=== PATIENT | female | born 1960 | race African-American/Black ===

== ENCOUNTER 2017-01-19 07:33 | Inpatient (IN) | payer MEDICARE ==
[~2017-01-19] VITALS: Ht 157.5 cm; Wt 104.8 kg
[2017-01-19] VITALS (8 sets, daily range): BP systolic 130–180; BP diastolic 51–83
[~2017-01-19 07:33] MED LIST: INSULIN
[2017-01-19] MEDS ORDERED: CALCIUM GLUCONATE 100MG/ML 10ML VIAL IV ONE (08:00)
[2017-01-19 08:05] LABS: BASOPHILS % 0.4 % (0.0-2.0); EOSINOPHILS % 1.5 % (0.0-5.0); HEMATOCRIT. 29.6 % (36.0-48.0); HEMOGLOBIN. 9.6 g/dL (12.0-16.0); LYMPHOCYTES % 17.6 % (20.0-50.0); MEAN CORPUSCULAR HEMOGLOBIN 29.6 pg (28.0-32.0); MEAN CORPUSCULAR VOLUME 91.1 fL (81.0-99.0); MONOCYTES % 4.6 % (2.0-8.0); NEUTROPHILS % 75.9 % (40.0-76.0); PLATELET 131 x1000/uL (130-400); RED BLOOD CELL COUNT 3.25 mill/uL (4.2-5.4); RED CELL DISTRIBUTION WIDTH 15.5 % (11.6-14.6)
[2017-01-19 08:13] LABS: PROTHROMBIN TIME 10.3 sec
[2017-01-19] MEDS ORDERED: CALCIUM GLUCONATE 1000MG in DEXTROSE 5% WATER 50ML IV ONE (08:15)
[2017-01-19 08:16] LABS: CHLORIDE 96 mEq/L (98-107)
[2017-01-19 08:22] LABS: CARBON DIOXIDE 27 mEq/L (21-32)
[2017-01-19] MEDS ORDERED: FUROSEMIDE 100MG/10ML VIAL IV STA (08:27)
[2017-01-19] MEDS ORDERED: INSULIN REGULAR (HUMULIN R) 300UNITS/3ML IV ONE (08:30)
[2017-01-19] MEDS ORDERED: DEXTROSE 50% WATER 50ML SYRINGE IV ONE (08:30)
[2017-01-19] MEDS ORDERED: SODIUM BICARBONATE 8.4% 1 MEQ/ML 50ML SYR IV ONE (08:30)
[2017-01-19] MEDS ORDERED: ALBUTEROL (0.083%) 2.5MG/3ML NEB HHN ONE (08:30)
[2017-01-19] MEDS ORDERED: ALBUTEROL (0.083%) 2.5MG/3ML NEB ONE (08:57)
[2017-01-19] MEDS ORDERED: SODIUM POLYSTYRENE SULFONATE 15 G/60 ML BOT PO NR ×2 (10:00→14:00)
[2017-01-19] MEDS ORDERED: DIPHENHYDRAMINE 50MG/ML VIAL IV PRN (11:00)
[2017-01-19] MEDS ORDERED: MAGNESIUM/ALUMINUM HYDROXIDE/SIMETHICONE 30ML UDC PO PRN (11:00)
[2017-01-19] MEDS ORDERED: ONDANSETRON HCL 4MG/2ML VIAL IV PRN (11:00)
[2017-01-19] MEDS ORDERED: ZOLPIDEM TARTRATE 5MG TABLET PO PRN (11:00)
[2017-01-19] MEDS ORDERED: DOCUSATE SODIUM 100MG CAPSULE PO PRN (11:00)
[2017-01-19] MEDS ORDERED: IPRATROPIUM/ALBUTEROL 0.5-3(2.5)MG/3ML NEB INH PRN (11:00)
[2017-01-19] MEDS ORDERED: TRAMADOL 50MG TABLET PO PRN (11:00)
[2017-01-19] MEDS ORDERED: ACETAMINOPHEN 325MG TABLET PO PRN (11:00)
[2017-01-19] MEDS ORDERED: GUAIFENESIN 200MG/10ML SUGAR FREE UDC PO PRN (11:00)
[2017-01-19] MEDS ORDERED: LORAZEPAM 2MG/ML CPJ IV PRN (11:00)
[2017-01-19 12:00] LABS: T4 FREE 0.85 ng/dL (0.76-1.46)
[2017-01-19] MEDS ORDERED: ENOXAPARIN 30MG/0.3ML SYR SUBCUT SCH (12:00)
[2017-01-19 12:20] LABS: VITAMIN B12 SERUM 1058 pg/mL (211-911)
[2017-01-19 12:29] LABS: FOLIC ACID (FOLATE) SERUM > 20.00 ng/mL (>5.38)
[2017-01-19] MEDS ORDERED: LEVOFLOXACIN 500MG PREMIX 100 ML IV NR (13:00)
[2017-01-19] MEDS: CEFTRIAXONE 1 G PREMIX 50 ML IV SCH (15:04)
[2017-01-19] MEDS: CALCIUM CARBONATE 1250MG TABLET (500MG ELEMENTAL CALCIUM) PO SCH ×2 (15:04→17:48)
[2017-01-19] MEDS: SEVELAMER CARBONATE 800 MG TABLET PO SCH ×2 (15:04→17:48)
[2017-01-19] MEDS: CLONIDINE 0.1MG TABLET PO PRN (15:09)
[2017-01-19] MEDS ORDERED: CALCIUM GLUCONATE 1,000 MG in DEXT 5% WATER 90 ML IV NR (15:30)
[2017-01-19 15:51] LABS: CARBON DIOXIDE 28 mEq/L (21-32); CHLORIDE 98 mEq/L (98-107)
[2017-01-19 15:57] LABS: CREATINE KINASE 196 IU/L (26-192); TROPONIN I < 0.02 ng/mL (0.00-0.04)
[2017-01-19] MEDS: AMLODIPINE 2.5MG TABLET PO SCH ×2 (16:01→17:50)
[2017-01-19] MEDS: INS NPH/REG HM 70-30 100 UNITS/ML 10ML VIAL (HUMULIN 70-30) SUBCUT SCH (17:46)
[2017-01-19] MEDS: ENOXAPARIN 40MG/0.4ML SYR SUBCUT SCH (17:48)
[2017-01-19] MEDS ORDERED: INS NPH/REG HM 70-30 100 UNITS/ML 10ML VIAL (HUMULIN 70-30) SUBCUT SCH (18:15)
[2017-01-19] MEDS ORDERED: EPOETIN ALFA 10000UNITS/ML VIAL SUBCUT SCH (21:00)
[2017-01-19] MEDS: ATORVASTATIN CALCIUM 40MG TABLET PO SCH (21:42)
[2017-01-19] MEDS: AMLODIPINE 10MG TABLET PO SCH (21:42)
[2017-01-20] VITALS (13 sets, daily range): BP systolic 123–183; BP diastolic 60–93
[2017-01-20 06:19] LABS: BASOPHILS % 1.5 % (0.0-2.0); EOSINOPHILS % 3.8 % (0.0-5.0); HEMATOCRIT. 29.8 % (36.0-48.0); HEMOGLOBIN. 9.8 g/dL (12.0-16.0); LYMPHOCYTES % 28.6 % (20.0-50.0); MEAN CORPUSCULAR HEMOGLOBIN 29.7 pg (28.0-32.0); MEAN CORPUSCULAR VOLUME 90.3 fL (81.0-99.0); MEAN PLATELET VOLUME 11.2 fl (7.4-10.4); MONOCYTES % 8.3 % (2.0-8.0); NEUTROPHILS % 57.8 % (40.0-76.0); PLATELET 126 x1000/uL (130-400); RED CELL DISTRIBUTION WIDTH 15.4 % (11.6-14.6)
[2017-01-20 06:57] LABS: CARBON DIOXIDE 31 mEq/L (21-32); CHLORIDE 96 mEq/L (98-107); CREATINE KINASE 193 IU/L (26-192); PHOSPHORUS 3.7 mg/dL (2.5-4.9); TROPONIN I < 0.02 ng/mL (0.00-0.04)
[2017-01-20] MEDS: PANTOPRAZOLE SODIUM 40 MG/VIAL IV SCH (07:51)
[2017-01-20] MEDS: ASPIRIN 325MG EC TABLET PO SCH (07:51)
[2017-01-20] MEDS: FOLIC ACID/VITAMIN B COMP W-C TABLET PO SCH (08:03)
[2017-01-20] MEDS: CITALOPRAM HYDROBROMIDE 40MG TABLET PO SCH (08:03)
[2017-01-20] MEDS: CALCIUM CARBONATE 1250MG TABLET (500MG ELEMENTAL CALCIUM) PO SCH ×3 (08:03→18:17)
[2017-01-20] MEDS: SEVELAMER CARBONATE 800 MG TABLET PO SCH (08:03)
[2017-01-20] MEDS: INS NPH/REG HM 70-30 100 UNITS/ML 10ML VIAL (HUMULIN 70-30) SUBCUT SCH ×2 (08:19→18:15)
[2017-01-20] MEDS: CEFTRIAXONE 1 G PREMIX 50 ML IV SCH (08:51)
[2017-01-20] MEDS: ENOXAPARIN 40MG/0.4ML SYR SUBCUT SCH (18:16)
[2017-01-20] MEDS: ATORVASTATIN CALCIUM 40MG TABLET PO SCH (20:14)
[2017-01-20] MEDS: AMLODIPINE 10MG TABLET PO SCH (20:14)
[2017-01-20] MEDS: CLONIDINE 0.1MG TABLET PO PRN (21:11)
[2017-01-20] MEDS ORDERED: CITA40TA22 PO (22:58)
[2017-01-20] MEDS ORDERED: CALC1TAB17 PO (22:58)
[2017-01-20] MEDS ORDERED: ATOR80TA76 PO (22:58)
[2017-01-20] MEDS ORDERED: CINA30 PO (22:58)
[2017-01-20] MEDS ORDERED: SEVE800T8 PO (22:58)
[2017-01-20] MEDS ORDERED: HUM10VIA8 SQ ×2 (22:58)
[2017-01-20] MEDS ORDERED: LABE100T PO (22:58)
[2017-01-20] MEDS ORDERED: AMLO10TA4 PO (22:58)
[2017-01-21] VITALS (12 sets, daily range): BP systolic 147–174; BP diastolic 65–83
[2017-01-21 06:50] LABS: BASOPHILS % 1.8 % (0.0-2.0); HEMATOCRIT. 28.4 % (36.0-48.0); HEMOGLOBIN. 9.5 g/dL (12.0-16.0); LYMPHOCYTES % 28.3 % (20.0-50.0); MEAN CORPUSCULAR HEMOGLOBIN 29.8 pg (28.0-32.0); MEAN PLATELET VOLUME 11.1 fl (7.4-10.4); MONOCYTES % 10.8 % (2.0-8.0); NEUTROPHILS % 54.1 % (40.0-76.0); PLATELET 121 x1000/uL (130-400); RED BLOOD CELL COUNT 3.19 mill/uL (4.2-5.4); RED CELL DISTRIBUTION WIDTH 15.2 % (11.6-14.6)
[2017-01-21 07:55] LABS: PHOSPHORUS 4.4 mg/dL (2.5-4.9)
[2017-01-21] MEDS: ASPIRIN 325MG EC TABLET PO SCH (08:11)
[2017-01-21] MEDS: CALCIUM CARBONATE 1250MG TABLET (500MG ELEMENTAL CALCIUM) PO SCH ×3 (08:11→17:40)
[2017-01-21] MEDS: PANTOPRAZOLE SODIUM 40 MG/VIAL IV SCH (08:11)
[2017-01-21] MEDS: CITALOPRAM HYDROBROMIDE 40MG TABLET PO SCH (08:12)
[2017-01-21] MEDS: FOLIC ACID/VITAMIN B COMP W-C TABLET PO SCH (08:23)
[2017-01-21] MEDS: INS NPH/REG HM 70-30 100 UNITS/ML 10ML VIAL (HUMULIN 70-30) SUBCUT SCH ×2 (08:28→17:40)
[2017-01-21] MEDS ORDERED: CEFTRIAXONE 1 G PREMIX 50 ML IV SCH (08:30)
[2017-01-21] MEDS ORDERED: LEVOFLOXACIN 250MG PREMIX 50 ML IV SCH (13:00)
[2017-01-21] MEDS: CLONIDINE 0.1MG TABLET PO PRN (16:23)
[2017-01-21] MEDS: ENOXAPARIN 40MG/0.4ML SYR SUBCUT SCH (17:39)
[2017-01-21] MEDS: ATORVASTATIN CALCIUM 40MG TABLET PO SCH (21:05)
[2017-01-21] MEDS: AMLODIPINE 10MG TABLET PO SCH (21:05)
[2017-01-22] VITALS (8 sets, daily range): BP systolic 139–180; BP diastolic 65–82
[2017-01-22] MEDS: CLONIDINE 0.1MG TABLET PO PRN ×2 (02:13→08:24)
[2017-01-22] MEDS: ASPIRIN 325MG EC TABLET PO SCH (08:24)
[2017-01-22] MEDS: CITALOPRAM HYDROBROMIDE 40MG TABLET PO SCH (08:24)
[2017-01-22] MEDS: CALCIUM CARBONATE 1250MG TABLET (500MG ELEMENTAL CALCIUM) PO SCH ×2 (08:24→13:13)
[2017-01-22] MEDS: FOLIC ACID/VITAMIN B COMP W-C TABLET PO SCH (08:24)
[2017-01-22] MEDS: PANTOPRAZOLE SODIUM 40 MG/VIAL IV SCH (08:24)
[2017-01-22] MEDS: INS NPH/REG HM 70-30 100 UNITS/ML 10ML VIAL (HUMULIN 70-30) SUBCUT SCH (08:26)
[2017-01-22] MEDS ORDERED: HYDRALAZINE HCL 50MG TABLET PO SCH (21:00)
== END 2017-01-22 13:43 | disposition home or self-care (01) | DRG 871 ==
LOC: ER 07:51 → 5EST 09:04 → SUPCPDRO 10:53
PROVIDERS: ADMIT Internal Medicine; ATTEND Internal Medicine
PROC: 3E1M39Z Irrigation of Peritoneal Cavity using Dialysate, Percutaneous Approach (ICD-10-PCS; principal; 2017-01-19)
DX: A41.9 Sepsis, unspecified organism (principal); N18.6 End stage renal disease; E44.1 Mild protein-calorie malnutrition; E87.1 Hypo-osmolality and hyponatremia; I13.11 Hypertensive heart and chronic kidney disease without heart failure, with stage 5 chronic kidney disease, or end stage renal disease; Z68.41 Body mass index [BMI] 40.0-44.9, adult; N25.81 Secondary hyperparathyroidism of renal origin; E66.01 Morbid (severe) obesity due to excess calories; F32.9 Major depressive disorder, single episode, unspecified; F41.9 Anxiety disorder, unspecified; K59.00 Constipation, unspecified; E87.5 Hyperkalemia; E83.39 Other disorders of phosphorus metabolism; R00.1 Bradycardia, unspecified; E11.22 Type 2 diabetes mellitus with diabetic chronic kidney disease; D63.8 Anemia in other chronic diseases classified elsewhere; E78.00 Pure hypercholesterolemia, unspecified; E78.5 Hyperlipidemia, unspecified; E83.51 Hypocalcemia; Z88.0 Allergy status to penicillin; Z79.899 Other long term (current) drug therapy; Z79.4 Long term (current) use of insulin; Z80.1 Family history of malignant neoplasm of trachea, bronchus and lung; Z99.2 Dependence on renal dialysis; Z82.3 Family history of stroke; Z82.49 Family history of ischemic heart disease and other diseases of the circulatory system; Z83.3 Family history of diabetes mellitus; Z98.51 Tubal ligation status
CPT/HCPCS: 36415; 71010; 80048; 80053; 80061; 82550; 82553; 82607; 82746; 82962; 83036; 83540; 83550; 83605; 83690; 83735; 83880; 84100; 84439; 84443; 84484; 85025; 85610; 87040; 87070; 87205; 89050; 93005; 93306; 93970; 94640; 96365; 96375; 97161; 97165; 99291; C9113; J0610; J0696; J0885; J1650; J1815; J1956; J3490; J7060; J7611

== ENCOUNTER 2017-05-18 19:56 | Emergency (ER) | payer MEDICARE ==
[~2017-05-18] VITALS: Ht 157.5 cm; Wt 99.0 kg
[~2017-05-18 19:56] MED LIST changes: +AMLO10TA4 PO; +ATOR-2 PO; +CALC1TAB17 PO; +CINA30 PO; +CITA40TA22 PO; +HUM10VIA8 SQ; +SEVE800T8 PO
[2017-05-18] MEDS ORDERED: HYDR-4134 PO (20:25)
[2017-05-18] MEDS ORDERED: HYDROCODONE/ACETAMINOPHEN 5/325MG TABLET PO ONE (22:30)
[2017-05-19 00:39] VITALS: BP 160/73
== END 2017-05-19 00:42 | disposition home or self-care (01) ==
LOC: ER 19:56
DX: M70.62 Trochanteric bursitis, left hip (principal); E11.9 Type 2 diabetes mellitus without complications; E78.00 Pure hypercholesterolemia, unspecified; I12.0 Hypertensive chronic kidney disease with stage 5 chronic kidney disease or end stage renal disease; E11.22 Type 2 diabetes mellitus with diabetic chronic kidney disease; N18.6 End stage renal disease; Z99.2 Dependence on renal dialysis; Z79.4 Long term (current) use of insulin; Z88.0 Allergy status to penicillin; Y93.89 Activity, other specified
CPT/HCPCS: 73502; 99284

== ENCOUNTER 2021-07-23 19:07 | Emergency (ER) | payer MEDICARE, OTHER ==
[~2021-07-23] VITALS: Ht 160 cm; Wt 88.8 kg
[~2021-07-23 19:07] MED LIST changes: +FOLI1TAB63 MT; +HYDR-4134 PO; -INSULIN; +LABE100T5 MT
[2021-07-23 21:00] VITALS: BP 153/87
[2021-07-23] MEDS ORDERED: ONDANSETRON 4MG ODT PO ONE (21:45)
== END 2021-07-23 22:00 | disposition home or self-care (01) ==
LOC: ER 19:07
DX: J06.9 Acute upper respiratory infection, unspecified (principal); I10 Essential (primary) hypertension; E78.00 Pure hypercholesterolemia, unspecified; Z88.0 Allergy status to penicillin; Z79.899 Other long term (current) drug therapy; Z98.51 Tubal ligation status
CPT/HCPCS: 93005; 99283; Q0162

== ENCOUNTER 2024-10-06 17:27 | Emergency (ER) | payer MEDICARE, OTHER ==
[~2024-10-06] VITALS: Ht 157.5 cm; Wt 79.0 kg
[~2024-10-06 17:27] MED LIST changes: +APIX2.5T PO; +ASPI-1497 PO; -HYDR-4134 PO; -LABE100T5 MT; +LABE100T9 MT; +SULF1TAB48 PO
[2024-10-06 17:37] VITALS: TEMP 37.2; O2SAT 96
[2024-10-06 18:36] VITALS: TEMP 99
[2024-10-06] MEDS: ACETAMINOPHEN 325MG TABLET PO NR (18:36)
[2024-10-06 22:04] VITALS: BP 125/58; PULSE 78; RESP 14; O2SAT 97
== END 2024-10-06 22:05 | disposition home or self-care (01) ==
LOC: ER 17:27
DX: S52.501A Unspecified fracture of the lower end of right radius, initial encounter for closed fracture (principal); E11.9 Type 2 diabetes mellitus without complications; I10 Essential (primary) hypertension; E78.5 Hyperlipidemia, unspecified; I48.91 Unspecified atrial fibrillation; Z79.899 Other long term (current) drug therapy; Z79.82 Long term (current) use of aspirin; Z90.710 Acquired absence of both cervix and uterus; Z88.0 Allergy status to penicillin; W19.XXXA Unspecified fall, initial encounter; Y93.89 Activity, other specified; Y92.89 Other specified places as the place of occurrence of the external cause; Y99.8 Other external cause status
CPT/HCPCS: 29125; 73110; 99283

== ENCOUNTER 2024-12-29 12:36 | Inpatient (IN) | payer MEDICARE ==
[2024-12-29] VITALS (29 sets, daily range): BP systolic 86–173; BP diastolic 39–69; PULSE 73–112; RESP 5–27; TEMP 37.3; O2SAT 95–100
[~2024-12-29] VITALS: Ht 152.4 cm; Wt 92.1 kg
[~2024-12-29 12:36] MED LIST changes: -AMLO10TA4 PO; +AMLO5TAB88 PO; -APIX2.5T PO; +APIX5TAB PO; -CALC1TAB17 PO; +CEFD300C3 MT; -CINA30 PO; +FLUT9.9S BOTHNSTRLS; -HUM10VIA8 SQ; -LABE100T9 MT; +LACT1CAP77 PO; +MAGN400T29 MT; +METO25TA6 PO; +ONDA4TAB50 PO; +PANT40TA51 PO; -SEVE800T8 PO; -SULF1TAB48 PO
[2024-12-29] MEDS ORDERED: CEFEPIME 2GM IN DEXT 5% 100ML IV ONE (12:45)
[2024-12-29] MEDS: SODIUM CHLORIDE 0.9% (SEPSIS BOLUS) IV ONE (13:30)
[2024-12-29 15:17] LABS: INR 1.4; PROTHROMBIN TIME 14.3 sec (9.6-11.0)
[2024-12-29 15:18] LABS: CHLORIDE 98 mEq/L (98-107); SODIUM 135 mEq/L (136-145)
[2024-12-29 15:19] LABS: CALCIUM 7.7 mg/dL (8.7-10.4); CARBON DIOXIDE 33 mEq/L (21-32)
[2024-12-29 15:21] LABS: BASOPHILS % 0.5 % (0.0-2.0); EOSINOPHILS % 0.3 % (0.0-5.0); HEMATOCRIT. 21.9 % (36.0-48.0); LYMPHOCYTES % 11.8 % (20.0-50.0); MEAN CORPUSCULAR HEMOGLOBIN 27.6 pg (28.0-32.0); MEAN CORPUSCULAR VOLUME 86.4 fL (81.0-99.0); MEAN PLATELET VOLUME 10.1 fl (7.4-10.4); MONOCYTES % 9.2 % (2.0-8.0); NEUTROPHILS % 78.2 % (40.0-76.0); PLATELET 163 x1000/uL (130-400); RED BLOOD CELL COUNT 2.54 mill/uL (4.2-5.4); WHITE BLOOD COUNT 7.7 x1000/uL (4.5-11.0)
[2024-12-29 15:24] LABS: GLUCOSE 159 mg/dL (70-105)
[2024-12-29 15:25] LABS: UREA NITROGEN BLOOD 12 mg/dL (9-23)
[2024-12-29 15:26] LABS: ALANINE AMINOTRANSFERASE 16 IU/L (10-49); ALBUMIN 2.3 g/dL (3.2-4.8); ASPARTATE AMINOTRANSFERASE 30 IU/L (<34)
[2024-12-29 15:27] LABS: BILIRUBIN DIRECT 0.4 mg/dL (<=3.0); BILIRUBIN TOTAL 0.7 mg/dL (0.1-1.0); PROTEIN TOTAL 5.5 g/dL (6.0-8.3)
[2024-12-29] MEDS: VANCOMYCIN 1G PREMIX 200 ML IV ONE (15:31)
[2024-12-29 15:45] LABS: TROPONIN I HIGH SENSITIVITY 86 ng/L (3.0-34)
[2024-12-29] MEDS: SODIUM CHLORIDE 0.9% 500 ML IV ONE (16:21)
[2024-12-29] MEDS: CEFEPIME 2GM/50ML DUPLEX 50 ML IV NR (16:30)
[2024-12-29] MEDS ORDERED: DOCUSATE SODIUM 100MG CAPSULE PO PRN (16:45)
[2024-12-29] MEDS ORDERED: GUAIFENESIN 200MG/10ML SUGAR FREE UDC PO PRN (16:45)
[2024-12-29] MEDS ORDERED: IPRATROPIUM/ALBUTEROL 0.5-3(2.5)MG/3ML NEB HHN PRN (16:45)
[2024-12-29] MEDS ORDERED: MAGNESIUM/ALUMINUM HYDROXIDE/SIMETHICONE 30ML UDC PO PRN (16:45)
[2024-12-29] MEDS ORDERED: NA PHOS,M-B/NA PHOS,DI-BA ENEMA 118ML PR PRN (16:45)
[2024-12-29] MEDS ORDERED: CLONIDINE 0.1MG TABLET PO PRN (16:45)
[2024-12-29] MEDS ORDERED: HYDROCODONE/ACETAMINOPHEN 5/325MG TABLET PO PRN (16:45)
[2024-12-29] MEDS ORDERED: ACETAMINOPHEN 325MG TABLET PO PRN (16:45)
[2024-12-29] MEDS: NOREPINEPHRINE 8MG/250ML PMX 250 ML IV ONE (17:35)
[2024-12-29] MEDS: POTASSIUM CHLORIDE 20MEQ/PACKET PO NR (20:51)
[2024-12-29] MEDS: MAGNESIUM 2 G PREMIX 50 ML IV NR (20:52)
[2024-12-29] MEDS ORDERED: METOCLOPRAMIDE HCL 5MG TABLET PO PRN (21:30)
[2024-12-29] MEDS: VANCOMYCIN 500MG PREMIX 100 ML IV NR (21:32)
[2024-12-29] MEDS: POTASSIUM PHOSPHATE 30 MMOL in DEXT 5% WATER 490 ML IV NR (21:33)
[2024-12-29] MEDS ORDERED: DEXTROSE 50% WATER 50ML SYRINGE IV PRN (21:45)
[2024-12-29] MEDS: METOPROLOL TARTRATE 25MG TABLET PO SCH (21:47)
[2024-12-29] MEDS: SODIUM CHLORIDE 0.9% 1,000 ML IV SCH (21:48)
[2024-12-29] MEDS: MIDODRINE HCL 5MG TABLET PO SCH (22:10)
[2024-12-29 22:26] LABS: TROPONIN I HIGH SENSITIVITY 146 ng/L (3.0-34)
[2024-12-29] MEDS ORDERED: VASOPRESSIN 20 UNIT in SODIUM CHLORIDE 0.9% 99 ML IV PRN (23:00)
[2024-12-30] VITALS (103 sets, daily range): BP systolic 60–143; BP diastolic 34–84; PULSE 63–105; RESP 0–27; TEMP 36.8–37.4; O2SAT 95–100
[2024-12-30] MEDS: PHENYLEPHRINE 50MG/250ML PMX 250 ML IV PRN (00:02)
[2024-12-30] MEDS: BLOOD SUGAR DIAGNOSTIC STRIP TEST SCH (05:44)
[2024-12-30] MEDS: CEFTRIAXONE 2GM/50ML 50 ML IV SCH (05:44)
[2024-12-30] MEDS: SUCRALFATE 1G TABLET PO SCH (05:44)
[2024-12-30 05:56] LABS: HEMATOCRIT. 22.2 % (36.0-48.0); MEAN CORPUSCULAR HEMOGLOBIN 28.2 pg (28.0-32.0); MEAN CORPUSCULAR HGB CONC 31.5 g/dL (31.0-37.0); MEAN CORPUSCULAR VOLUME 89.7 fL (81.0-99.0); MEAN PLATELET VOLUME 10.2 fl (7.4-10.4); PLATELET 182 x1000/uL (130-400); RED BLOOD CELL COUNT 2.48 mill/uL (4.2-5.4); RED CELL DISTRIBUTION WIDTH 17.1 % (11.6-14.6); WHITE BLOOD COUNT 9.8 x1000/uL (4.5-11.0)
[2024-12-30 06:30] LABS: CHLORIDE 97 mEq/L (98-107); POTASSIUM 3.5 mEq/L (3.5-5.1); SODIUM 134 mEq/L (136-145)
[2024-12-30 06:31] LABS: CARBON DIOXIDE 29 mEq/L (21-32); DIFFERENTIAL COMMENT 1
[2024-12-30 06:32] LABS: CALCIUM 8.1 mg/dL (8.7-10.4)
[2024-12-30 06:36] LABS: CREATININE 4.8 mg/dL (0.6-1.0); GLUCOSE 166 mg/dL (70-105)
[2024-12-30] MEDS: INSULIN LISPRO 100 UNITS/ML SUBCUT SCH (06:36)
[2024-12-30 06:37] LABS: CREATINE KINASE 43 IU/L (34-145); UREA NITROGEN BLOOD 15 mg/dL (9-23)
[2024-12-30 06:38] LABS: T4 FREE 1.19 ng/dL (0.89-1.76); THYROID STIMULATING HORMONE 1.19 uIU/mL (0.55-4.78)
[2024-12-30 08:00] LABS: TROPONIN I HIGH SENSITIVITY 246 ng/L (3.0-34)
[2024-12-30] MEDS: LIDOCAINE HCL 1% 10 MG/ML 10ML VIAL ONE (08:05)
[2024-12-30] MEDS: PANTOPRAZOLE SODIUM 40 MG/VIAL IV SCH (08:40)
[2024-12-30] MEDS: CITALOPRAM HYDROBROMIDE 10MG TABLET PO SCH (08:40)
[2024-12-30] MEDS ORDERED: AMLODIPINE 5MG TABLET PO SCH (09:00)
[2024-12-30 09:59] LABS: PLATELET ESTIMATE NORMAL
[2024-12-30 10:00] LABS: ANISOCYTOSIS 2+
[2024-12-30] MEDS: MIDODRINE HCL 5MG TABLET PO SCH (13:34)
[2024-12-30] MEDS ORDERED: NALOXONE HCL 0.4MG/ML VIAL IV PRN (15:15)
[2024-12-30] MEDS: POTASSIUM CHLORIDE 20MEQ TABLET SR PO NR (15:44)
[2024-12-30 15:58] LABS: CREATINE KINASE 45 IU/L (34-145)
[2024-12-30 16:12] LABS: TROPONIN I HIGH SENSITIVITY 187 ng/L (3.0-34)
[2024-12-30] MEDS: ATORVASTATIN CALCIUM 40MG TABLET PO SCH (21:03)
[2024-12-31] VITALS (55 sets, daily range): BP systolic 86–164; BP diastolic 34–96; PULSE 63–88; RESP 9–28; TEMP 36.7–36.89184; O2SAT 95–100
[2024-12-31 05:42] LABS: MEAN CORPUSCULAR HEMOGLOBIN 28.2 pg (28.0-32.0); MEAN CORPUSCULAR VOLUME 88.2 fL (81.0-99.0); PLATELET 186 x1000/uL (130-400); RED BLOOD CELL COUNT 2.34 mill/uL (4.2-5.4); RED CELL DISTRIBUTION WIDTH 16.8 % (11.6-14.6); WHITE BLOOD COUNT 9.5 x1000/uL (4.5-11.0)
[2024-12-31 05:56] LABS: CHLORIDE 101 mEq/L (98-107); POTASSIUM 4.4 mEq/L (3.5-5.1); SODIUM 134 mEq/L (136-145)
[2024-12-31 05:58] LABS: CARBON DIOXIDE 26 mEq/L (21-32)
[2024-12-31 05:59] LABS: CALCIUM 8.1 mg/dL (8.7-10.4)
[2024-12-31 06:04] LABS: ALANINE AMINOTRANSFERASE 14 IU/L (10-49); ALBUMIN 2.3 g/dL (3.2-4.8); ASPARTATE AMINOTRANSFERASE 31 IU/L (<34); GLUCOSE 114 mg/dL (70-105); UREA NITROGEN BLOOD 18 mg/dL (9-23)
[2024-12-31 06:06] LABS: BILIRUBIN TOTAL 0.4 mg/dL (0.1-1.0); PHOSPHORUS 3.3 mg/dL (2.5-4.9); PROTEIN TOTAL 5.4 g/dL (6.0-8.3)
[2024-12-31 06:21] LABS: CREATININE 6.1 mg/dL (0.6-1.0)
[2024-12-31] MEDS: CEFTRIAXONE 2GM/50ML 50 ML IV SCH (08:00)
[2024-12-31 08:40] LABS: HEMATOCRIT 20.7 % (36.0-48.0); HEMOGLOBIN 6.6 g/dL (12.0-16.0)
[2024-12-31 08:53] LABS: HEPATITIS B SURFACE ANTIGEN NEGATIVE (Negative)
[2024-12-31 09:14] LABS: HEPATITIS A AB IGM NEGATIVE (Negative); HEPATITIS B CORE AB IGM NEGATIVE (Negative)
[2024-12-31 09:15] LABS: HEPATITIS C AB NON REACTIVE (Neg) (Negative)
[2024-12-31] MEDS: ONDANSETRON HCL 4MG/2ML INJ IV PRN (10:14)
[2024-12-31] MEDS ORDERED: EPOETIN ALFA 10000UNITS/ML VIAL SUBCUT SCH (21:00)
[2024-12-31] MEDS: EPOETIN ALFA-EPBX 4,000 UNIT/ML VIAL SUBCUT SCH (21:16)
[2024-12-31] MEDS: VANCOMYCIN 500MG PREMIX 100 ML IV SCH (21:17)
[2025-01-01] VITALS (8 sets, daily range): BP systolic 93–140; BP diastolic 31–90; PULSE 70–96; RESP 18–22; TEMP 36–36.9; O2SAT 94–100
[2025-01-01 07:13] LABS: POTASSIUM 4.1 mEq/L (3.5-5.1)
[2025-01-01 07:15] LABS: CALCIUM 8.2 mg/dL (8.7-10.4)
[2025-01-01 07:20] LABS: CREATININE 4.8 mg/dL (0.6-1.0)
[2025-01-01 07:25] LABS: HEMATOCRIT 21.3 % (36.0-48.0); MEAN CORPUSCULAR HEMOGLOBIN 27.8 pg (28.0-32.0); MEAN CORPUSCULAR HGB CONC 31.5 g/dL (31.0-37.0); PLATELET 200 x1000/uL (130-400); RED BLOOD CELL COUNT 2.42 mill/uL (4.2-5.4); RED CELL DISTRIBUTION WIDTH 16.6 % (11.6-14.6); WHITE BLOOD COUNT 8.4 x1000/uL (4.5-11.0)
[2025-01-01 08:08] LABS: HEMOGLOBIN 6.7 g/dL (12.0-16.0)
[2025-01-01] MEDS ORDERED: MIDO5TAB4 PO (15:43)
[2025-01-02] VITALS (12 sets, daily range): BP systolic 117–158; BP diastolic 47–74; PULSE 71–84; RESP 16–20; TEMP 35.6–36.7; O2SAT 81–100
[2025-01-02] MEDS: ACETAMINOPHEN 325MG TABLET PO PRN (01:37)
[2025-01-02] MEDS: MIDODRINE HCL 5MG TABLET PO SCH (08:49)
[2025-01-03] VITALS: BP 129/40; PULSE 81; RESP 18; TEMP 36.4; O2SAT 100
[2025-01-03 04:00] VITALS: BP 128/58; PULSE 84; RESP 19; TEMP 36.7; O2SAT 99
[2025-01-03 08:00] VITALS: BP 125/73; PULSE 100; RESP 18; TEMP 36.7; O2SAT 95
[2025-01-03 12:00] VITALS: BP 108/45; PULSE 79; RESP 18; TEMP 36.7; O2SAT 100
[2025-01-03 12:49] VITALS: BP 108/52; PULSE 73; TEMP 97.7; O2SAT 100
[2025-01-03 13:05] LABS: CHLORIDE 105 mEq/L (98-107); POTASSIUM 3.6 mEq/L (3.5-5.1); SODIUM 138 mEq/L (136-145)
[2025-01-03 13:06] LABS: CALCIUM 8.4 mg/dL (8.7-10.4); CARBON DIOXIDE 24 mEq/L (21-32)
[2025-01-03 13:11] LABS: CREATININE 4.7 mg/dL (0.6-1.0); GLUCOSE 72 mg/dL (70-105); UREA NITROGEN BLOOD 14 mg/dL (9-23)
== END 2025-01-03 16:49 | DRG 871 ==
LOC: ER 12:36 → EDBEDREQ 15:37 → EDBEDREQSVC 15:37 → MICUSO 18:46 → 8WST 12-31 18:17
PROVIDERS: ADMIT Hospitalist; ATTEND Hospitalist
PROC: 05H533Z Insertion of Infusion Device into Right Subclavian Vein, Percutaneous Approach (ICD-10-PCS; principal; 2024-12-30)
PROC: B546ZZA Ultrasonography of Right Subclavian Vein, Guidance (ICD-10-PCS; 2024-12-30)
PROC: 5A1D70Z Performance of Urinary Filtration, Intermittent, Less than 6 Hours Per Day (ICD-10-PCS; 2024-12-31)
PROC: 5A1D70Z Performance of Urinary Filtration, Intermittent, Less than 6 Hours Per Day (ICD-10-PCS; 2025-01-02)
DX: A41.59 Other Gram-negative sepsis (principal); I21.A1 Myocardial infarction type 2; N18.6 End stage renal disease; R65.21 Severe sepsis with septic shock; D62 Acute posthemorrhagic anemia; E87.1 Hypo-osmolality and hyponatremia; I13.2 Hypertensive heart and chronic kidney disease with heart failure and with stage 5 chronic kidney disease, or end stage renal disease; I50.32 Chronic diastolic (congestive) heart failure; G72.81 Critical illness myopathy; E11.22 Type 2 diabetes mellitus with diabetic chronic kidney disease; E78.5 Hyperlipidemia, unspecified; E83.39 Other disorders of phosphorus metabolism; E83.42 Hypomagnesemia; E87.6 Hypokalemia; E88.09 Other disorders of plasma-protein metabolism, not elsewhere classified; E11.43 Type 2 diabetes mellitus with diabetic autonomic (poly)neuropathy; I48.91 Unspecified atrial fibrillation; K31.84 Gastroparesis; K27.9 Peptic ulcer, site unspecified, unspecified as acute or chronic, without hemorrhage or perforation; R62.7 Adult failure to thrive; Z79.01 Long term (current) use of anticoagulants; Z87.11 Personal history of peptic ulcer disease; Z88.0 Allergy status to penicillin; Z90.710 Acquired absence of both cervix and uterus; Z95.818 Presence of other cardiac implants and grafts; Z99.2 Dependence on renal dialysis; Z79.899 Other long term (current) drug therapy; Z68.39 Body mass index [BMI] 39.0-39.9, adult
CPT/HCPCS: 36415; 36573; 71045; 74018; 80048; 80053; 80076; 80202; 82270; 82550; 82728; 82962; 83605; 83735; 84100; 84145; 84439; 84443; 84484; 85025; 85027; 85044; 86705; 86709; 86850; 86900; 86920; 87340; 90935; 93005; 93970; 94070; 94760; 96361; 96365; 96367; 97162; 97166; 99291; A4606; C1725; J0692; J0696; J0885; J1815; J2003; J2371; J2405; J2470; J3370; J3475; J3490; J7030; J7040; J7060